=== PATIENT | male | born 1945 ===

== ENCOUNTER 2017-08-30 17:50 | Emergency (ER) | payer OTHER ==
[~2017-08-30] VITALS: Ht 175.3 cm; Wt 81.6 kg
[2017-08-30] MEDS ORDERED: PLAVIX75 MG (18:03)
[2017-08-30] MEDS ORDERED: TOPROL XL50 M1 (18:03)
== END 2017-08-30 23:52 | disposition home or self-care (01) ==
LOC: ER 17:50
DX: R42 Dizziness and giddiness (principal)

== ENCOUNTER 2019-07-28 15:06 | Emergency (ER) | payer OTHER ==
[~2019-07-28] VITALS: Ht 175.3 cm; Wt 83.9 kg
[~2019-07-28 15:06] MED LIST: PLAVIX75 MG; TOPROL XL50 M1
[2019-07-28] MEDS ORDERED: AVALIDE 300-121 EACH (15:29)
== END 2019-07-28 21:57 | disposition home or self-care (01) ==
LOC: ER 15:06
DX: S01.02XA Laceration with foreign body of scalp, initial encounter (principal); R51 Headache; W18.09XA Striking against other object with subsequent fall, initial encounter; Y93.89 Activity, other specified; Y92.89 Other specified places as the place of occurrence of the external cause; Y99.8 Other external cause status

== ENCOUNTER 2021-12-31 07:23 | Emergency (ER) | payer OTHER ==
[~2021-12-31] VITALS: Ht 175.3 cm; Wt 82.6 kg
[~2021-12-31 07:23] MED LIST changes: +AVALIDE 300-121 EACH
== END 2021-12-31 13:30 | disposition home or self-care (01) ==
LOC: ER 07:23
DX: R00.2 Palpitations (principal); I48.91 Unspecified atrial fibrillation; I10 Essential (primary) hypertension

== ENCOUNTER 2023-04-22 08:08 | Emergency (ER) | payer OTHER ==
[~2023-04-22] VITALS: Ht 175.3 cm; Wt 73.0 kg
[2023-04-22] MEDS ORDERED: FARXIGA10 MG PO (08:29)
== END 2023-04-22 15:42 | disposition home or self-care (01) ==
LOC: ER 08:08
PROVIDERS: Emergency Medicine
DX: R46.89 Other symptoms and signs involving appearance and behavior (principal); E11.9 Type 2 diabetes mellitus without complications; Z79.84 Long term (current) use of oral hypoglycemic drugs; I10 Essential (primary) hypertension